=== PATIENT | female | born 1950 | race Caucasian/White ===

== ENCOUNTER 2020-06-10 10:25 | Day surgery (SDC) | payer OTHER ==
[2020-06-10] MEDS ORDERED: oxyCODONE HCL 5 MG TABLET PO PRN (11:06)
[2020-06-10] MEDS ORDERED: ONDANSETRON 4 MG/2 ML VIAL IVPUSH PRN (11:06)
[2020-06-10] MEDS ORDERED: LACTATED RINGERS SOLUTION 1,000 ML IV SCH (11:15)
[2020-06-10] MEDS ORDERED: SCOPOLAMINE HYDROBROMIDE 1 PATCH PATCH.TD72 ONE (12:03)
[2020-06-10] MEDS ORDERED: ONDANSETRON 4 MG/2 ML VIAL ONE ×2 (12:09→13:17)
[2020-06-10] MEDS ORDERED: DEXAMETHASONE SOD PHOSPHATE 4 MG/1 ML VIAL ONE (12:09)
[2020-06-10] MEDS ORDERED: PROPOFOL 20 ML ONE (12:10)
[2020-06-10] MEDS ORDERED: MIDAZOLAM HCL 2 MG/2 ML SINGLE DOSE VIAL ONE (12:10)
[2020-06-10] MEDS ORDERED: VANCOMYCIN 1,000 MG VIAL (RESTRICTED TO ID ONLY) ONE (12:20)
[2020-06-10] MEDS ORDERED: EPHEDRINE SULFATE/0.9% NACL/PF 50 MG/10 ML SYRINGE NR ONE (12:48)
[2020-06-10] MEDS ORDERED: BUPIVACAINE HCL/PF 0.25% (2.5MG/ML) 10 ML VIAL ONE (12:52)
[2020-06-10] MEDS ORDERED: BUPIVACAINE HCL/PF 0.25% (2.5MG/ML) 10 ML VIAL IJ ONE (12:55)
[2020-06-10] MEDS ORDERED: oxyCODONE HCL 5 MG TABLET ONE ×2 (13:53→14:26)
[2020-06-10 15:15] VITALS: BP 124/76; PULSE 68; TEMP 97.8
== END 2020-06-10 15:15 | disposition home or self-care (01) ==
LOC: FASU 10:25
PROVIDERS: ATTEND Surgery Plastic and Reconstructive Surgery
PROC: 0JB60ZZ Excision of Chest Subcutaneous Tissue and Fascia, Open Approach (ICD-10-PCS; principal; 2020-06-10 12:36)
DX: S21.002A Unspecified open wound of left breast, initial encounter (principal); Z85.3 Personal history of malignant neoplasm of breast; Z08 Encounter for follow-up examination after completed treatment for malignant neoplasm; X58.XXXA Exposure to other specified factors, initial encounter; Y93.9 Activity, unspecified; Y92.9 Unspecified place or not applicable
CPT/HCPCS: 87070; 87205; 88304-TC; 94760